=== PATIENT | male | born 1950 | race Caucasian/White ===

== ENCOUNTER → 2017-04-19 | Outpatient (CLI) | payer OTHER ==
[~2017-04-19] MED LIST: ASPIRIN CHEWABL81 MG PO; LOTREL 10-40 M1 EACH PO; OMEGA 3 FISH O1 EACH PO; PRAVASTATIN SOD10 MG PO; VITAMIN D31000 UNIT PO
== END ==
LOC: US 09:30
DX: N18.3 Chronic kidney disease, stage 3 (moderate) (principal); N27.1 Small kidney, bilateral

== ENCOUNTER → 2017-05-03 | Day surgery (SDC) | payer OTHER ==
[~2017-05-03] VITALS: Ht 167.6 cm; Wt 61.2 kg
== END | disposition home or self-care (01) ==
LOC: OR 07:52
PROVIDERS: Internal Medicine Gastroenterology
PROC: 0DJD8ZZ Inspection of Lower Intestinal Tract, Via Natural or Artificial Opening Endoscopic (ICD-10-PCS; principal; 2017-05-03 13:15)
DX: Z12.11 Encounter for screening for malignant neoplasm of colon (principal); K57.30 Diverticulosis of large intestine without perforation or abscess without bleeding; K64.0 First degree hemorrhoids; I12.9 Hypertensive chronic kidney disease with stage 1 through stage 4 chronic kidney disease, or unspecified chronic kidney disease; E11.22 Type 2 diabetes mellitus with diabetic chronic kidney disease; N18.2 Chronic kidney disease, stage 2 (mild); E78.00 Pure hypercholesterolemia, unspecified; F17.220 Nicotine dependence, chewing tobacco, uncomplicated; Z91.041 Radiographic dye allergy status; Z88.8 Allergy status to other drugs, medicaments and biological substances; Z79.82 Long term (current) use of aspirin; Z79.899 Other long term (current) drug therapy; Z90.49 Acquired absence of other specified parts of digestive tract; Z85.828 Personal history of other malignant neoplasm of skin; Z90.79 Acquired absence of other genital organ(s)
CPT/HCPCS: G0121; 82962; J7030

== ENCOUNTER → 2022-01-06 | Outpatient (CLI) | payer OTHER | LOC: EXRD 12:53 | DX: N18.31 Chronic kidney disease, stage 3a (principal) | CPT/HCPCS: 76775 ==

== ENCOUNTER → 2022-05-14 | Outpatient (CLI) | payer OTHER | LOC: KOH-I 14:30 | DX: Z87.891 Personal history of nicotine dependence (principal); I10 Essential (primary) hypertension | CPT/HCPCS: 71271 ==